=== PATIENT | male | born 1975 ===

== ENCOUNTER 2018-08-08 10:32 | Emergency (ER) | payer SELFPAY ==
[2018-08-08 10:38] VITALS: BP 158/95; PULSE 56; RESP 18; TEMP 97.9; O2SAT 100
--- NOTE | 2018-08-08 11:15 | C.PDOC ---
History Of Present Illness 43 y/o male comes in to ED complaining of dental pain since 8 days ago. States he plans to [place]. Patient states he is taking 1 tablet of OTC 200mg motrin a day but with no relief. Otherwise he denies any fever, nausea, vomiting, headache, bleeding, or trauma. Time Seen by Provider: 08/08/18 10:40 Chief Complaint (Nursing): Dental Pain History Per: Patient History/Exam Limitations: no limitations Onset/Duration Of Symptoms: Days Current Symptoms Are (Timing): Still Present Past Medical History Reviewed: Historical Data, Nursing Documentation, Vital Signs Vital Signs: Last Vital Signs Temp 97.9 F 08/08/18 10:35 Pulse 56 L 08/08/18 10:35 Resp 18 08/08/18 10:35 BP 158/95 H 08/08/18 10:35 Pulse Ox 100 08/08/18 10:35 Family History: States: No Known Family Hx - Social History Hx Alcohol Use: No Hx Substance Use: No - Immunization History Hx Tetanus Toxoid Vaccination: No Hx Influenza Vaccination: No Hx Pneumococcal Vaccination: No Review Of Systems Constitutional: Negative for: Fever ENT: Negative for: Mouth Swelling Gastrointestinal: Negative for: Nausea, Vomiting Musculoskeletal: Positive for: Other (Dental pain) Neurological: Negative for: Headache Physical Exam - Physical Exam Appears: Non-toxic, No Acute Distress Skin: Warm, Dry, No Rash Head: Atraumatic, Normacephalic Eye(s): bilateral: Normal Inspection Oral Mucosa: Moist Teeth: No Caries, Tender To Palpation (to 5th tooth) Cardiovascular: Rhythm Regular, No Murmur Extremity: Bilateral: Atraumatic, Normal Color And Temperature, Normal ROM Neurological/Psych: Oriented x3, Normal Speech ED Course And Treatment O2 Sat by Pulse Oximetry: 100 (RA) Pulse Ox Interpretation: Normal Medical Decision Making Medical Decision Making: Plan: --Motrin pt in need of root canal, will tx for pain, no gum swelling. Disposition Counseled Patient/Family Regarding: Diagnosis, Need For Followup, Rx Given - Disposition Disposition: HOME/ ROUTINE Disposition Time: 11:13 Condition: GOOD Additional Instructions: [place] 600 mg de ibuprofeno cada 6 horas (con alimentos). Alternar con Tylenol 650 mg. Compresa fra para la sari puede ayudar. Pruebe sobre el mostrador de Anbesol tambin. Regrese a la chicho de emergencias por fiebre, hinchazn facial o cualquier otra inquietud. James un seguimiento con el dentista para el tratamiento de endodoncia lo antes posible. Take 600 mg of ibuprofen every 6 hours (with food). ALternate with Tylenol 650 mg. Cold compress to face may help. Try over the counter Anbesol as well. Return to ER for fever, facial swelling or any other concerns. Follow up with dentist for root canal as soon as possible. Prescriptions: Acetaminophen [Tylenol 325mg tab] 650 mg PO Q4 #50 tab Ibuprofen [Motrin] 600 mg PO TID #30 tab Forms: Gen Discharge Inst Hebrew, Recognia (Hebrew) Print Language: TAMAZIGHT - Clinical Impression Clinical Impression: Pain, dental - PA / SOFTWARE PRODUCT SPECIALIST / Resident Statement MD/DO has reviewed & agrees with the documentation as recorded. - Scribe Statement The provider has reviewed the documentation as recorded by the Scribe Laureen Mcmahan All medical record entries made by the Scribshanon were at my direction and personally dictated by me. I have reviewed the chart and agree that the record accurately reflects my personal performance of the history, physical exam, medical decision making, and the department course for this patient. I have also personally directed, reviewed, and agree with the discharge instructions and disposition.
== END 2018-08-08 11:41 | disposition home or self-care (01) ==
LOC: C.ER 10:32
DX: K08.89 Other specified disorders of teeth and supporting structures (principal)